=== PATIENT | female | born 1990 | race African-American/Black ===

== ENCOUNTER → 2016-10-28 | Day surgery (SDC) | payer OTHER ==
[~2016-10-28] VITALS: Ht 170.2 cm; Wt 60.8 kg
[~2016-10-28] MED LIST: BUPIVACAINE LIPOSOME/PF 1.3% 20 ML VIAL (13.3MG/ML)(EXPAREL) As Ordered ONE; BUPIVACAINE/EPIN 0.25% 30 ML VIAL As Ordered ONE; FOLI1TAB2 PO; HAIR1TAB5 PO; HYDROmorphone HCL 1 MG/ML SYRINGE (J1170) IV PRN; KETOROLAC 30 MG/ML VIAL (J1885) As Ordered ONE; KETOROLAC 30 MG/ML VIAL (J1885) IV SCH; LIDOCAINE 2% JELLY 30 ML As Ordered ONE; LIDOCAINE PRES-FREE 2% 10ML AMP As Ordered ONE; LR 1,000 ML IV SCH; MIDAZOLAM INJ 2 MG/2 ML VIAL (J2250) As Ordered ONE; MORPHINE 2 MG/ML 1ML SYRINGE IV PRN; NORCO, ANEXSIA 5/325MG TABLET (HYDROcodone/ACETAMINOPHEN) PO PRN; ONDANSETRON 4MG/2ML VIAL (J2405) As Ordered ONE; ONDANSETRON 4MG/2ML VIAL (J2405) IV PRN; PERCOCET 5MG/325MG TAB PO PRN; PHENYLephrine HCL 500 MCG/5 ML (100MCG/ML) SYRINGE (J2370) As Ordered ONE; PROPOFOL 200 MG/20 ML VIAL As Ordered ONE; ROCURONIUM BROMIDE 50 MG/5 ML VIAL As Ordered ONE; SUCCINYLCHOLINE 100 MG/5 ML SYRINGE (J0330) As Ordered ONE; VITA100041 PO; ceFAZolin SOD 1 GM in D5W MINI-BAG PLUS 50 ML IV ONE; dexameTHASONE 4 MG/ML 1ML VIAL (J1100) As Ordered ONE; fentaNYL 100 MCG/2 ML INJECTION (J3010) As Ordered ONE; fentaNYL 100 MCG/2 ML INJECTION (J3010) IV PRN
[2016-10-28 07:03] LABS: CONTROL LINE UCG INT CTR LINE PRESENT
--- NOTE | 2016-10-28 08:52 | RO ---
DATE OF PROCEDURE: 10/28/2016 PREPROCEDURE DIAGNOSIS: Umbilical hernia. POSTPROCEDURE DIAGNOSIS: Umbilical hernia. PROCEDURE: Umbilical hernia repair with Ventral patch. SURGEON: Salvatore Hutchinson MD LOCKER ATTENDANT: ANESTHESIA: General endotracheal anesthesia. ESTIMATED BLOOD LOSS: Minimal. FLUIDS: Crystalloid. DESCRIPTION OF PROCEDURE: The patient was brought to the operating room and was given general anesthesia. After anesthesia and preoperative antibiotics were given, the patient was prepped and draped in the usual sterile fashion. Next, a periumbilical incision was made with a skin knife. Blunt dissection was carried down to the fascia and an incision was made to dissect the subcutaneous tissue off the fascia using some blunt dissection, as well as electrocautery. The patient had a significant diastasis rectus muscle in the periumbilical area, as well as some palpable small umbilical hernias present. Once the umbilicus was circumferentially dissected off the fascia, the umbilicus was transected at the level of the fascia. Next, the fascia was palpated and indeed was significant diastased and diastatic both inferior and superior to the umbilicus and I felt that this required at least imbrication, if not reinforcement with a Ventral patch. Thus, a Ventral patch was placed into the peritoneal cavity after placing imbricating sutures, both superiorly and inferiorly under direct visualization. The rectus muscles came together quite nicely over the mesh at this point and all sutures were superior to the mesh and revealed no evidence of tacking of the mesh intraperitoneally. In any case, at this point, the tails of the mesh were sutured both medial and laterally and the total fascial defect was closed with figure of eight Ethibond sutures as well and once this was closed in its entirety, the #3-0 Vicryl was used to tack the umbilicus to the fascia. #3-0 Vicryl was used to close the dermis and #4-0 Vicryl was used to approximate the skin. Steri-Strips and a dry sterile dressing were applied. The patient was awakened, extubated and brought to the recovery room awake, alert, and hemodynamically stable. Sponge and needle counts were correct times two. MTDD
[2016-10-28 12:30] VITALS: BP 106/60
--- NOTE | 2016-10-31 00:33 | ECGEPIP ---
Stationary ECG Study [facility] Test Date: 2016-10-28 Pat Name: PARTH DA SILVA Department: Room: - Gender: F [employer]ing [employer]bish [employer]or: CLAUDIA : 1990 Requested By: CODI Harvey Order Number: [id number] Reading MD: Terence Leyva Measurements Intervals [place] Rate: 74 P: 75 [place]: 204 QRS: 85 QRSD: 83 T: 38 QT: 382 QTc: 424 Interpretive Statements SINUS RHYTHM No prior tracing Electronically Signed On 10-31-2016 0:33:53 EDT by Terence Leyva
== END | disposition home or self-care (01) ==
LOC: M SDC 06:24
PROVIDERS: ATTEND Surgery
DX: K42.9 Umbilical hernia without obstruction or gangrene (principal); T88.59XD Other complications of anesthesia, subsequent encounter
CPT/HCPCS: 49585; 84703; 93005; C1781; J0330; J0690; J1100; J1885; J2250; J2370; J2405; J3010